=== PATIENT | female | born 1980 | race Caucasian/White ===

== ENCOUNTER 2017-11-10 09:02 | Day surgery (SDC) | payer OTHER ==
[~2017-11-10] VITALS: Ht 167.6 cm; Wt 60.7 kg
[~2017-11-10 09:02] MED LIST: ATARAX,VISTARIL25 MG PO; CYMBALTA30 MG PO; CYMBALTA60 MG PO; KENALOG,ARISTOC80 G1 TP; MIRALAX255 GM PO; MOTRIN600 MG PO; NAPROSYN500 MG PO; NOHOMEMEDS; PERIDEX1 ML MM; PREDNISONE20 MG PO; VIBRAMYCIN100 MG PO
[2017-11-10 09:35] LABS: BASOPHIL (%) 0.3 % (0-1); EOSINOPHIL (%) 1.5 % (0-5); EOSINOPHIL COUNT 0.1 K/uL (0-0.3); HEMATOCRIT 41.9 % (36.0-46.0); HEMOGLOBIN 14.2 G/DL (11.9-15.5); IMMATURE GRANULOCYTE (%) 0.2 % (0.0-0.7); LYMPHOCYTE (%) 28.2 % (15-42); LYMPHOCYTE COUNT 1.9 K/uL (1.0-2.8); MCH 31.3 PG (29.0-34.0); MCHC 33.9 G/DL (30.0-36.0); MCV 92.5 FL (83-99); MONOCYTE (%) 7.5 % (3-12); MONOCYTE COUNT 0.5 K/uL (0-0.8); NEUTROPHIL (%) 62.3 % (45-76); NEUTROPHIL COUNT 4.1 K/uL (1.8-6.4); PLATELET COUNT 178 K/uL (156-360); RBC DIS.WIDTH-CV 11.8 % (11.8-14.6); RBC DIS.WIDTH-SD 39.8 % (39-53); RED BLOOD COUNT 4.53 M/uL (3.80-5.20); WHITE BLOOD COUNT 6.6 K/uL (4.1-10.2)
[2017-11-10 09:40] LABS: INTER. NORMALIZED RATIO 1.1
[2017-11-10 09:43] LABS: CHLORIDE 107 mEq/L (99-109); POTASSIUM 3.7 mEq/L (3.7-5.4); SODIUM 140 mEq/L (136-147)
[2017-11-10 09:44] LABS: APPEARANCE SL.HAZY ((CLEAR)); BILIRUBIN NEGATIVE; BLOOD NEGATIVE; COLOR YELLOW ((YELLOW)); GLUCOSE (STRIP) NEGATIVE; KETONES NEGATIVE; LEUKOCYTES NEGATIVE; NITRITE NEGATIVE; PROTEIN (STRIP) NEGATIVE; SPECIFIC GRAVITY 1.021 (1.000-1.030); UROBILINOGEN 0.2 MG/DL (0.2-1.0)
[2017-11-10 09:45] LABS: GLUCOSE 83 mg/dL (70-99)
[2017-11-10 09:49] LABS: CREATININE 0.7 mg/dL (0.6-1.3); GFR ESTIMATE (CALCULATED) > 59 mL/min/
[2017-11-10 09:50] LABS: UREA NITROGEN (BUN) 9 mg/dL (9-23)
[2017-11-10 09:57] LABS: QUANTITATIVE HCG < 4.0 MIU/ML
[2017-11-10 10:02] LABS: BACTERIA RARE /HPF; EPITHELIAL CELLS 1+ /HPF; MUCUS 2+ /LPF; RED BLOOD CELLS 0-5 /HPF (0-5); WHITE BLOOD CELLS 0-5 /HPF (0-5)
[2017-11-10 22:22] VITALS: BP 100/59
[2017-11-11 03:50] VITALS: BP 108/62
[2017-11-11 07:35] VITALS: BP 106/65
[2017-11-11 12:26] VITALS: BP 120/70
[2017-11-11 15:56] VITALS: BP 110/68
[2017-11-11] MEDS ORDERED: HYDROCODON-ACE1 EAC7 PO (16:18)
[2017-11-11] MEDS ORDERED: COLACE100 MG PO (16:18)
== END 2017-11-11 18:37 | disposition home or self-care (01) ==
LOC: EME 09:02 → ENRESERV 11:35 → SDC 19:02 → EME 19:02 → 2SOUTH 20:24 → 2EAST 20:24 → ENRESERV 20:28 → 2EAST 21:59
PROVIDERS: Emergency Medicine
PROC: 0DTJ0ZZ Resection of Appendix, Open Approach (ICD-10-PCS; principal; 2017-11-10)
DX: K35.80 Unspecified acute appendicitis (principal); Z85.41 Personal history of malignant neoplasm of cervix uteri; G43.909 Migraine, unspecified, not intractable, without status migrainosus; R56.9 Unspecified convulsions; D64.9 Anemia, unspecified; Z87.891 Personal history of nicotine dependence
CPT/HCPCS: 74177; 80048; 81003; 84702; 85025; 85610; 88304; 99281; 99284; G0378; J0131; J1170; J1335; J1885; J2250; J2270; J2405; J3010; J7030